=== PATIENT | male | born 1980 | race Caucasian/White ===

== ENCOUNTER 2018-01-22 17:12 | Emergency (ER) | payer SELFPAY ==
[~2018-01-22] VITALS: Ht 170.2 cm; Wt 77.0 kg
[2018-01-22] MEDS ORDERED: LORAZEPAM 2MG/ML CPJ IV ONE (20:45)
[2018-01-22] MEDS ORDERED: HALOPERIDOL LACTATE 5MG/ML VIAL IM ONE (20:45)
[2018-01-22 20:49] LABS: OPIATES URINE SCREEN NEGATIVE (NEGATIVE)
[2018-01-22 20:50] LABS: *AMPHETAMINES SCREEN URINE PRESUMTIVE POSITIVE (NEGATIVE); *BARBITURATES SCREEN URINE NEGATIVE (NEGATIVE); *BENZODIAZEPINES SCREEN URINE NEGATIVE (NEGATIVE); *COCAINE SCREEN URINE NEGATIVE (NEGATIVE); CANNABINOID URINE SCREEN NEGATIVE (NEGATIVE); METHADONE URINE SCREEN NEGATIVE (NEGATIVE); PHENCYCLIDINE URINE SCREEN NEGATIVE (NEGATIVE)
[2018-01-22 20:51] LABS: BASOPHILS % 1.2 % (0.0-2.0); EOSINOPHILS % 1.1 % (0.0-5.0); HEMATOCRIT. 39.9 % (42.0-52.0); HEMOGLOBIN. 13.6 g/dL (14.0-18.0); LYMPHOCYTES % 35.8 % (20.0-50.0); MEAN CORPUSCULAR HEMOGLOBIN 31.3 pg (28.0-32.0); MEAN CORPUSCULAR VOLUME 91.9 fL (80.0-94.0); MEAN PLATELET VOLUME 8.1 fl (7.4-10.4); MONOCYTES % 7.8 % (2.0-8.0); NEUTROPHILS % 54.1 % (40.0-76.0); PLATELET 254 x1000/uL (130-400); RED BLOOD CELL COUNT 4.35 mill/uL (4.7-6.1); RED CELL DISTRIBUTION WIDTH 13.5 % (11.6-14.6)
[2018-01-22 20:58] LABS: CHLORIDE 114 mEq/L (98-107)
[2018-01-22 21:02] LABS: ETHANOL BLOOD 279 mg/dL
[2018-01-22 21:05] LABS: CLARITY URINE CLEAR (CLEAR); KETONES URINE NEGATIVE (NEGATIVE); LEUKOCYTE ESTERASE URINE NEGATIVE (NEGATIVE); NITRITE URINE NEGATIVE (NEGATIVE); OCCULT BLOOD URINE NEGATIVE (NEGATIVE); PH URINE 6.5 (4.5-8.0); PROTEIN URINE NEGATIVE (NEGATIVE); SPECIFIC GRAVITY URINE 1.006 (1.005-1.030); UROBILINOGEN URINE 0.2 E.U./dL (0.2-1.0)
[2018-01-22 21:06] LABS: COLOR URINE PALE YELLOW (YELLOW)
[2018-01-22] MEDS ORDERED: SODIUM CHLORIDE 0.9% 1,000 ML IV ONE (21:42)
[2018-01-23] MEDS ORDERED: DEXT 5%/0.45% NACL 1000ML 1,000 ML IV ONE (00:58)
[2018-01-23 12:14] VITALS: BP 111/67
== END 2018-01-23 12:16 | disposition home or self-care (01) ==
LOC: EDBD 19:56 → ER 19:56
DX: F10.129 Alcohol abuse with intoxication, unspecified (principal); F15.10 Other stimulant abuse, uncomplicated; R56.9 Unspecified convulsions; G93.89 Other specified disorders of brain; Y90.8 Blood alcohol level of 240 mg/100 ml or more
CPT/HCPCS: 36415; 70450; 80053; 80305; 81003; 82962; 85025; 96361; 96372; 96374; 99285; G0482; J1630; J2060; J3490; J7030; X7700; Z7610